=== PATIENT | male | born 1965 | race Caucasian/White ===

== ENCOUNTER → 2019-08-18 12:49 | Outpatient (CLI) | payer OTHER, SELFPAY ==
--- NOTE | 2019-08-18 | DI.RAD.S_ITS ---
PROCEDURE: XR CHEST 2V INDICATIONS: Cough TECHNIQUE: 2 views of the chest were acquired. COMPARISON: [facility], , CHEST 2 VIEW, 07/02/2008, 16:42. FINDINGS: Surgical changes and devices: None. Lungs and pleura: Lungs are clear. No pleural effusions or pneumothorax. Mediastinum: Mediastinal contours are normal. Heart size is enlarged. Bones and chest wall: No suspicious bony abnormalities. Soft tissues appear unremarkable. IMPRESSION: 1. Stable cardiomegaly. No acute cardiopulmonary disease. Dictated by: Vernon Bermudez [facility] Interpreted: Emerson Alicea MD on 08/18/2019 at 13:15 Approved by: Emerson Alicea M.D. on 08/18/2019 at 16:19
== END ==
PROVIDERS: PCP Physician Assistant; Referring Provider Physician Assistant; Visit Provider Physician Assistant
DX: R05 Cough (principal); I51.7 Cardiomegaly
CPT/HCPCS: 71046

== ENCOUNTER → 2019-10-02 11:29 | Outpatient (CLI) | payer OTHER, SELFPAY ==
--- NOTE | 2019-10-02 | DI.CT.S_ITS ---
PROCEDURE: CT CHEST W CON INDICATIONS: FLANK PAIN TECHNIQUE: After the administration of intravenous contrast, 5 mm thick sections acquired from the pulmonary apices to the posterior costophrenic angles. 1 mm axial lung, 5 mm thick coronal and sagittal reformats and 7 mm axial MIP were acquired. For radiation dose reduction, the following was used: automated exposure control, adjustment of mA and/or kV according to patient size. COMPARISON: None. FINDINGS: Image quality: Excellent. Lungs and pleura: There are several small, faint patchy groundglass opacities noted in the left upper lobe without focal nodules or consolidations. Remainder the visualized lungs appear clear with minimal bibasilar atelectasis. No septal thickening or nodularity. No pleural effusions or pneumothorax. Central and peripheral airways are patent and normal in caliber. Mediastinum: Heart size is normal. No pericardial effusion. No mediastinal or hilar adenopathy by size criteria. Thoracic aorta and central pulmonary arteries are normal in size. Esophagus is normal in caliber. Small hiatal hernia. Bones and chest wall: No suspicious bony lesions. No vertebral body compression fractures. No axillary or supraclavicular adenopathy by size criteria. Thyroid gland is unremarkable. Abdomen: Visualized upper abdominal solid organs appear normal. Upper abdominal bowel loops are normal in caliber. IMPRESSION: A few scattered, small faint patchy groundglass opacities noted in the left upper lobe without focal nodules or consolidation. Findings are nonspecific and may represent an infectious versus inflammatory process. Dictated by: Bert Galeana M.D. on 10/02/2019 at 13:16 Approved by: Bert Galeana M.D. on 10/02/2019 at 13:22
[2019-10-02 11:46] LABS: Bacteria Urine None Seen; RBC Urine None Seen (0-5/HPF); WBC Urine None Seen (0-5/HPF)
[2019-10-02 12:02] LABS: Appearance Urine UA CLEAR; Bilirubin Urine UA NEGATIVE (NEGATIVE); Color Urine UA YELLOW; Glucose Urine UA NEGATIVE (Negative); Ketones Urine UA NEGATIVE (NEGATIVE); Leukocyte Esterase Urine UA NEGATIVE (NEGATIVE); Nitrite Urine UA NEGATIVE (Negative); Occult Blood Urine UA NEGATIVE (Negative); Protein Urine UA NEGATIVE (Negative); Specific Gravity Urine UA <=1.005 (1.000-1.035); Urobilinogen Urine UA 0.2 E.U./dL (0.2); pH Urine UA 6.5 (4.5-8.0)
[2019-10-02 12:09] LABS: BUN Creatinine Ratio 15.2 (6-22); Blood Urea Nitrogen 10 mg/dL (9-20); Estimated Glomerular Filt Rate > 60.0 mL/min (>60)
[2019-10-02 12:14] LABS: Culture Indicated Urine Cult Not Indicated; Urine Comments Microscopic Normal
[2019-10-02 16:30] LABS: Alanine Aminotransferase 28 IU/L (<50); Alkaline Phosphatase 82 U/L (38-126); Aspartate Aminotransferase 35 IU/L (17-59)
[2019-10-02 16:33] LABS: Bilirubin Total 0.5 mg/dL (0.2-1.3)
== END ==
PROVIDERS: PCP Physician Assistant; Referring Provider Internal Medicine; Visit Provider Internal Medicine
DX: R10.9 Unspecified abdominal pain (principal); R07.1 Chest pain on breathing; K44.9 Diaphragmatic hernia without obstruction or gangrene
CPT/HCPCS: 36415; 71260; 81001; 82247; 82565; 84075; 84450; 84460; 84520; Q9967

== ENCOUNTER → 2019-10-05 11:14 | Outpatient (CLI) | payer OTHER, SELFPAY ==
--- NOTE | 2019-10-05 | DI.US.S_ITS ---
PROCEDURE: US ABDOMEN LIMITED INDICATIONS: CALCULUS OF GALLBLADDER W/ACUTE CHOLECYSTITIS TECHNIQUE: Real-time scanning was performed of the abdominal and retroperitoneal organs, with image documentation. COMPARISON: [facility], CT, CT CHEST W CON, 10/02/2019, 12:33. FINDINGS: Liver: Liver is normal in size and diffusely increased echotexture. There is a 5.7 x 3.8 x 3.6 cm hypoechoic area in the left hepatic lobe. Gallbladder: No gallstones. Mild gallbladder wall thickening measuring 3.9 mm. No pericholecystic fluid or sonographic Odonnell's sign. Biliary ducts: Intrahepatic bile ducts are non-dilated. Extrahepatic bile duct caliber measures 5.6 mm. Normal is 6-7 mm or less in diameter, or 10 mm or less post-cholecystectomy. Pancreas: Visualized portions of the pancreas are sonographically normal. Miscellaneous: No free abdominal fluid. IMPRESSION: 1. No gallstones. There is question of mild gall bladder with thickening. Recommend clinical correlation for early acalculus cholecystitis. 2. Diffusely increased hepatic echotexture. This finding is most likely secondary to hepatic fatty infiltration although other hepatocellular disease may have a similar appearance. Recommend clinical correlation. 3. A 5.7 x 3.8 x 3.6 cm hypoechoic area in the left hepatic lobe, most likely secondary to focal fat sparing but a mass is not excluded. Abdominal CT is suggested for further evaluation. The result was discussed with Dr. Sorenson. Dictated by: Álvaro Gutierrez M.D. on 10/05/2019 at 12:07 Approved by: Álvaro Gutierrez M.D. on 10/05/2019 at 12:13
== END ==
PROVIDERS: PCP Physician Assistant; Referring Provider Internal Medicine; Visit Provider Internal Medicine
DX: K80.00 Calculus of gallbladder with acute cholecystitis without obstruction (principal)
CPT/HCPCS: 76705

== ENCOUNTER → 2019-10-06 07:28 | Outpatient (CLI) | payer OTHER, SELFPAY ==
--- NOTE | 2019-10-06 | DI.CT.S_ITS ---
PROCEDURE: CT ABDOMEN W CON INDICATIONS: Calculus of gallbladder with acute cholecystitis without obs TECHNIQUE: After the administration of oral and intravenous contrast, 5 mm thick sections acquired from the diaphragms to the iliac crests. 5 mm thick coronal and sagittal reformats were acquired. For radiation dose reduction, the following was used: automated exposure control, adjustment of mA and/or kV according to patient size. COMPARISON: [facility], , US ABDOMEN LIMITED, 10/05/2019, 11:39. FINDINGS: Image quality: Excellent. Lung bases: Lung bases are clear. Heart size is normal. Solid organs: Liver is normal in size and enhancement. Gallbladder negative. No gallbladder wall thickening. No evidence of pericholecystic inflammatory changes Biliary system is non dilated. Pancreas enhances normally. Spleen is normal in size and enhancement. No adrenal nodules. Kidneys are normal in size, without hydronephrosis. A presumed subcentimeter right renal cyst on image 45/2, too small to characterize. Peritoneum and bowel: Contrast enhanced bowel loops appear normal in caliber. No free fluid or air. Normal appendix Nodes and vessels: No retroperitoneal or mesenteric adenopathy by size criteria. Aorta and inferior vena cava are normal in size. Bones: No suspicious bony lesions. No vertebral body compression fractures. Diffuse spondylosis and endplate spurring Fat-containing umbilical hernia IMPRESSION: No CT evidence of cholelithiasis or acute cholecystitis. If clinically indicated, further evaluation with HIDA scan could be performed if suspicion of acalculus gallbladder disease Small fat-containing umbilical hernia Dictated by: Nabil Leos M.D. on 10/06/2019 at 9:09 Approved by: Nabil Leos M.D. on 10/06/2019 at 9:14
--- NOTE | 2019-10-06 | DI.CT.S_ITS ---
PROCEDURE: CT ANGIO CHEST PE PROTOCOL INDICATIONS: Calculus of gallbladder with acute cholecystitis without obs TECHNIQUE: After the administration of intravenous contrast, 2 mm thick sections acquired from the pulmonary apices to the posterior costophrenic angles. 3-dimensional maximum intensity projection (MIP) coronal and sagittal reformats were then acquired through the thorax. For radiation dose reduction, the following was used: automated exposure control, adjustment of mA and/or kV according to patient size. COMPARISON: [facility], CT, CT CHEST W CON, 10/02/2019, 12:33. [facility], CR, XR CHEST 2V, 08/18/2019, 11:49. [facility], CT, CT ABDOMEN W CON, 10/06/2019, 8:20. [facility], US, US ABDOMEN LIMITED, 10/05/2019, 11:39. FINDINGS: Image quality: Excellent. Pulmonary arteries: Pulmonary arteries are normal in size, and demonstrate no intraluminal filling defects to suggest central pulmonary embolism. Lungs and pleura: Minimal left upper lobe patchy groundglass opacities are seen, which are similar to the prior recent CT. Lungs are otherwise clear. No pleural effusions or pneumothorax. Central and peripheral airways are patent. Mediastinum: Heart size is mildly enlarged, without pericardial effusion. No mediastinal or hilar adenopathy. Thoracic aorta is normal in caliber and enhancement. Esophagus is normal in caliber. There is a small hiatal hernia. Bones and chest wall: No suspicious bony lesions. Ribs and thoracic spine appear intact throughout. Thyroid gland demonstrates no significant CT abnormality. No axillary or supraclavicular adenopathy. Abdomen: Diffuse fatty liver infiltration is noted. Visualized upper abdominal solid organs appear normal in the early arterial phase of enhancement. IMPRESSION: Negative for pulmonary embolism. Minimal left upper lobe patchy groundglass opacities are seen, which are not significantly changed compared to the prior recent CT. Differential diagnosis includes atypical/viral infection versus an inflammatory process. Mild cardiomegaly. Incidental note is made of: Small hiatal hernia Fatty liver infiltration Dictated by: Ricki Mcpherson M.D. on 10/06/2019 at 8:28 Approved by: Ricki Mcpherson M.D. on 10/06/2019 at 8:33
== END ==
PROVIDERS: PCP Physician Assistant; Referring Provider Internal Medicine; Visit Provider Internal Medicine
DX: K80.00 Calculus of gallbladder with acute cholecystitis without obstruction (principal); K42.9 Umbilical hernia without obstruction or gangrene; K44.9 Diaphragmatic hernia without obstruction or gangrene; I51.7 Cardiomegaly; K76.0 Fatty (change of) liver, not elsewhere classified
CPT/HCPCS: 71275; 74160; Q9967

== ENCOUNTER 2020-12-06 11:28 | Emergency (ER) | payer OTHER, SELFPAY ==
[2020-12-06 11:36] VITALS: BP 178/97; PULSE 52; RESP 16; TEMP 36.3; O2SAT 100
[2020-12-06 12:05] LABS: Add Manual Diff / Slide Review NO; Basophils Absolute Auto 0 /uL (0-100); Basophils Percent Auto 0.2 % (0-2); Eosinophils Absolute Auto 200 /uL (0-450); Eosinophils Percent Auto 2.4 % (2-4); Hematocrit 52.9 % (41-53); Hemoglobin 17.5 g/dL (13.5-17.5); Lymphocytes Absolute Auto 2000 /uL (1100-4500); Lymphocytes Percent Auto 25.1 % (25-40); Mean Corpuscular Hemoglobin 29.8 PG (26-34); Mean Corpuscular Volume 90.1 fL (80-100); Monocytes Absolute Auto 800 /uL (0-900); Monocytes Percent Auto 9.8 % (3-14); Neutrophils Absolute Auto 5100 /uL (1500-7000); Neutrophils Percent Auto 62.5 % (50-75); Platelet Count 126 X10^3/uL (150-400); Red Blood Cell Count 5.87 X10^6/uL (4.5-5.9); Red Cell Distribution Width 13.6 % (11.6-14.8); White Blood Cell Count 8.1 X10^3/uL (4.5-11.0)
[2020-12-06 12:11] LABS: BUN Creatinine Ratio 13.7 (6-22); Blood Urea Nitrogen 10 mg/dL (9-20); Calcium 9.9 mg/dL (8.4-10.2); Carbon Dioxide 29 mmol/L (22-32); Chloride 105 mmol/L (98-107); Estimated Glomerular Filt Rate > 60.0 mL/min (>60); Glucose 92 mg/dL (70-100); HEMOLYSIS 22 (0-50); Potassium 4.4 mmol/L (3.4-5.1); Sodium 140 mmol/L (137-145)
--- NOTE | 2020-12-06 13:21 | ED.GIBLEED ---
HPI - GI Bleed General Chief complaint: GI Bleed Stated complaint: hemorrhoids/ bleeding/ on thinners Time Seen by Provider: 12/06/20 13:21 Source: patient and family Mode of arrival: Ambulatory Limitations: no limitations History of Present Illness HPI Narrative: This is a 55-year-old male who comes emergency department with complaint of a hemorrhoid that became very hard in the last couple days quite painful and then burst and has been bleeding over the last 12-24 hours. Patient states it has been soaking through his underwear and continuously bleeding. Patient is on Xarelto for prior strokes as well as coil embolization for brain aneurysm. Patient states he has chronic IBS and has chronic abdominal pain but does not have new changes. He felt a little bit dizzy. He has not had any fevers or chills. He has not had any vomiting. Patient has seen Gastroenterology in the past but has not seen them recently. He has never had any intervention for hemorrhoids. Related Data Home Medications Medication Instructions Recorded Confirmed amlodipine 5 mg-benazepril 10 mg 1 cap PO DAILY 05/08/20 05/08/20 capsule aspirin 81 mg tablet,delayed 81 mg PO DAILY 05/08/20 05/08/20 release (Adult Low Dose Aspirin) cetirizine 10 mg tablet 10 mg PO DAILY 05/08/20 05/08/20 meloxicam 15 mg tablet 15 mg PO DAILY 05/08/20 05/08/20 multivitamin 1 tab PO DAILY 05/08/20 05/08/20 nadolol 80 mg tablet 80 mg PO DAILY 05/08/20 05/08/20 pregabalin 50 mg capsule 50 mg PO BID 05/08/20 05/08/20 ramipril 10 mg capsule 10 mg PO BID 05/08/20 05/08/20 tofacitinib 11 mg tablet,extended 11 mg PO DAILY 05/08/20 05/08/20 release 24 hr (Xeljanz XR) Previous Rx's Medication Instructions Recorded hydrocortisone 1 %-pramoxine 1 % 1 applic VT QID PRN #10 g 12/06/20 rectal foam (Proctofoam HC) Allergies Allergy/AdvReac Type Severity Reaction Status Date / Time No Known Drug Allergies Allergy Verified 12/06/20 11:41 Review of Systems Review of Systems ROS Unobtainable: All systems reviewed & are unremarkable except as noted in HPI and below Patient History Social History Smoking Status: Current every day smoker Smoking Status: Current every day smoker tobacco type: smokeless tobacco alcohol intake frequency: holidays/special occasions only Substance Use Type: does not use Exam Narrative Exam Narrative: GENERAL: Alert and oriented x three, male in mild distress. HEENT: Head normocephalic, atraumatic, EOMI, pupils reactive, face symmetric, moist mucous membranes NECK: Supple, full range of motion CARDIOVASCULAR: Regular rate and rhythm without murmurs, rubs or gallops. RESPIRATORY: Breath sounds equal bilaterally, no wheezes rales or rhonchi. ABDOMEN: Soft, nontender. Normoactive bowel sounds all 4 quadrants. No guarding or rebound, rigidity, no mass. On rectal exam patient has a large external hemorrhoid which is soft but quite tender, there is an area which has obviously opened up and bled and has a small area of clot. It is not actively bleeding but there was some bright red blood around the site from recent bleed. : No CVA tenderness EXTREMITIES: Normal range of motion, no clubbing or edema. Neurovascularly intact NEUROLOGICAL: Cranial nerves II through XII grossly intact. Moving all extremities SKIN: Warm, dry, no petechiae, no rashes or lesions. Initial Vital Signs Initial Vital Signs: Vital Signs Temperature 97.4 F L 12/06/20 11:36 Pulse Rate 52 L 12/06/20 11:36 Respiratory Rate 16 12/06/20 11:36 Blood Pressure 178/97 H 12/06/20 11:36 Pulse Oximetry 100 12/06/20 11:36 Course Orders Ordered: Discontinued Medications Lidocaine/Prilocaine (Lidocaine/Prilocaine 5 Gm) 5 gm TOP NOW ONE Stop: 12/06/20 13:51 Last Admin: 12/06/20 13:58 Dose: 5 gm Documented by: [email or web address] Tranexamic Acid (Tranexamic Acid 1,000 Mg Vial) 1,000 mg TOP NOW ONE Stop: 12/06/20 13:32 Last Admin: 12/06/20 13:58 Dose: 1,000 mg Documented by: [email or web address] Consultations Consultation #1: Dr. Caraballo, discussed if with this patient's history of uses Xarelto which I would not wish to stop at this time. Would be appropriate to put a stitch or lidocaine with epinephrine or even possibly inject TXA locally. He felt that placing a stitch would likely worsen the patient's symptoms might help with the bleeding for the short term but probably make his hemorrhoid worse. Same with injecting TXA. He is happy to follow with the patient this coming week in the office for possible treatment. Patient and I discussed he can do a topical Proctofoam, TXA topically on guaze. Patient was current for Sitz baths, a jeannette bottle or similar washes without any rubbing or abrasive drying. Patient states he has been washing area with a washcloth intermittently and was encouraged to use alternative gentler methods. Return precautions were discussed. Patient has a hemoglobin of 17 with symptoms that do not make me suspicious for a life-threatening bleed. Vital Signs Vital signs: Vital Signs - 8 hr 12/06/20 14:00 Pulse Rate 52 L Blood Pressure 159/96 H Pulse Oximetry 100 MDM - GI Bleed Lab Data Result diagrams: 12/06/20 11:50 12/06/20 11:50 Labs: Lab Results 12/06/20 12/06/20 Range/Units 11:50 11:50 WBC 8.1 (4.5-11.0) X10^3/uL RBC 5.87 (4.5-5.9) X10^6/uL Hgb 17.5 (13.5-17.5) g/dL Hct 52.9 (41-53) % MCV 90.1 (80-100) fL MCH 29.8 (26-34) PG MCHC 33.0 (30-36) % RDW 13.6 (11.6-14.8) % Plt Count 126 L (150-400) X10^3/uL Neut % (Auto) 62.5 (50-75) % Lymph % (Auto) 25.1 (25-40) % [place] % (Auto) 9.8 (3-14) % Eos % (Auto) 2.4 (2-4) % Baso % (Auto) 0.2 (0-2) % Neut # (Auto) 5100 (9250-2549) /uL Lymph # (Auto) 2000 (5157-2048) /uL [place] # (Auto) 800 (0-900) /uL Eos # (Auto) 200 (0-450) /uL Baso # (Auto) 0 (0-100) /uL Sodium 140 (137-145) mmol/L Potassium 4.4 (3.4-5.1) mmol/L Chloride 105 (98-107) mmol/L Carbon Dioxide 29 (22-32) mmol/L BUN 10 (9-20) mg/dL Creatinine 0.73 (0.66-1.25) mg/dL Estimated GFR > 60.0 (>60) mL/min BUN/Creatinine Ratio 13.7 (6-22) Glucose 92 (70-100) mg/dL Calcium 9.9 (8.4-10.2) mg/dL Discharge Plan Departure Patient Disposition: Home Clinical Impression: Bleeding external hemorrhoids Instructions: DI for Hemorrhoids Activity Restrictions/Additional Instructions: Follow up with Dr. Caraballo next week for recheck and possible treatment of your hemorrhoids. Call this afternoon or Wednesday morning for an appointment. You may use the transexanic acid on a small cotton swab or piece of gauze to the area that is bleeding and applied direct pressure for 15 minutes for recurrence. May use Proctofoam applied to the area as directed. Sitz baths or warm baths regularly. Decrease your activity and you may use a donut pillow for comfort while sitting. Please return for worsening worsening symptoms, rapidly worsening bleeding, bleeding that he cannot stop with direct pressure for 10-15 minutes. After having near syncope or lightheadedness, passing out, new chest pain or shortness of breath, new worsening abdominal pain, black stools or other new or concerning Prescriptions: New Proctofoam HC 1-1 % foam 1 applic VT QID PRN (Reason: hemorrhoids) Qty: 10 RF: 0 No Action amlodipine-benazepril 5-10 mg capsule 1 cap PO DAILY RF: 0 cetirizine 10 mg tablet 10 mg PO DAILY RF: 0 pregabalin 50 mg capsule 50 mg PO BID RF: 0 ramipril 10 mg capsule 10 mg PO BID RF: 0 meloxicam 15 mg tablet 15 mg PO DAILY RF: 0 Xeljanz XR 11 mg tablet extended release 24 hr 11 mg PO DAILY RF: 0 nadolol 80 mg tablet 80 mg PO DAILY RF: 0 multivitamin Tablet 1 tab PO DAILY RF: 0 aspirin [Adult Low Dose Aspirin] 81 mg tablet,delayed release (DR/EC) 81 mg PO DAILY RF: 0 Referrals: Selena Rooney PA-C [Primary Care Provider] - Domingo Caraballo MD [Physician] -
[2020-12-06 13:36] VITALS: PULSE 54; O2SAT 100
[2020-12-06] MEDS: TRANEXAMIC ACID 1,000 MG VIAL 1000 MG TOP (13:58)
[2020-12-06] MEDS: LIDOCAINE/PRILOCAINE 5 GM TOP (13:58)
[2020-12-06 14:00] VITALS: BP 159/96; PULSE 52; O2SAT 100
== END 2020-12-06 14:08 | disposition home or self-care (01) ==
PROVIDERS: Emergency Provider Emergency Medicine; PCP Physician Assistant
DX: K64.4 Residual hemorrhoidal skin tags (principal); Z79.01 Long term (current) use of anticoagulants
CPT/HCPCS: 36415; 80048; 85025; 99282; 99283